=== PATIENT | male | born 1960 | race Caucasian/White ===

== ENCOUNTER 2017-05-16 07:28 | Day surgery (SDC) | payer MEDICARE, OTHER ==
[~2017-05-16 07:28] MED LIST: Lactated Ringers 1,000 ML IV SCH; Sodium Chloride 0.9% 10 ML Syringe FLUSH PRN
[2017-05-16] MEDS ORDERED: Midazolam 1 MG/ML 2 ML SDV IV ONE (08:30)
[2017-05-16] MEDS ORDERED: Propofol 200 MG/20 ML SDV IV ONE (08:30)
--- NOTE | 2017-05-16 09:04 | PCM.OPNOTE ---
- General Post-Op/Procedure Note Date of Surgery/Procedure: 05/16/17 Operative Procedure(s): c scope with bx Findings: descending colon polyp sigmoid diverticulosis Pre Op Diagnosis: screening Post-Op Diagnosis: descending colon polyp. sigmoid diverticulosis Anesthesia Technique: VINITA Primary Surgeon: Jared Hector Anesthesia Provider: Luis Man Pathology: descending colon polyp Complications: None Condition: Good Free Text/Narrative:: see dictation
--- NOTE | 2017-05-16 09:47 | OR ---
DATE OF OPERATION: 05/16/2017 SURGEON: Jared Hector MD PROCEDURE PERFORMED: Colonoscopy with cold forceps biopsy. PREOPERATIVE DIAGNOSIS: Need for screening colonoscope. POSTOPERATIVE DIAGNOSIS: Sigmoid diverticulosis, descending colon polyp. INDICATIONS FOR PROCEDURE: This is a 57-year-old white male who presents for screening colonoscopy. He was offered and accepted same. DESCRIPTION OF OPERATION: After an excellent IV sedation was administered, digital rectal exam was performed. No marked abnormality was noted. Flexible colonoscope was inserted. At the sigmoid, there was a very sharp curve, but we were able to maneuver it. Scope was advanced to the cecum. The prep was excellent. The following findings were noted: Ascending colon, unremarkable. Transverse colon, unremarkable. Descending colon, the distal descending colon small polypoid lesion, biopsied with cold biopsy forceps and sent for permanent. Sigmoid, a few diverticula. Rectum and anus unremarkable. Colon was deflated and the scope was removed. The patient tolerated the procedure well, and was taken to recovery in good condition. /[id number] /MARLEE
== END 2017-05-16 10:29 | disposition home or self-care (01) ==
LOC: FB.SDS 07:28
PROVIDERS: ATTEND Surgery
DX: Z12.11 Encounter for screening for malignant neoplasm of colon (principal); D12.4 Benign neoplasm of descending colon; K57.30 Diverticulosis of large intestine without perforation or abscess without bleeding; K21.9 Gastro-esophageal reflux disease without esophagitis; F32.9 Major depressive disorder, single episode, unspecified; Z79.899 Other long term (current) drug therapy
CPT/HCPCS: 00812; 45380; 88305; J2250; J2704; J7120

== ENCOUNTER 2019-09-27 07:28 | Day surgery (SDC) | payer MEDICARE, OTHER ==
[2019-09-27] MEDS ORDERED: Midazolam 1 MG/ML 2 ML SDV IV ONE (07:29)
[2019-09-27] MEDS ORDERED: Propofol 200 MG/20 ML SDV IV ONE (07:29)
[2019-09-27] MEDS ORDERED: Sodium Chloride 0.9% 10 ML Syringe FLUSH PRN (07:30)
[2019-09-27] MEDS ORDERED: Lactated Ringers 1,000 ML IV SCH (07:30)
--- NOTE | 2019-09-27 09:18 | PCM.OPNOTE ---
- General Post-Op/Procedure Note Date of Surgery/Procedure: 09/27/19 Operative Procedure(s): c scope Findings: sigmoid diverticulosis Pre Op Diagnosis: personal hx of colon polyp (descending colon low grade dysplasia). diveticulosis Post-Op Diagnosis: sigmoid diverticulosis Anesthesia Technique: MAC Primary Surgeon: Jared Hector Anesthesia Provider: Terri Yates Pathology: none Complications: None Condition: Good Free Text/Narrative:: see dictation
--- NOTE | 2019-09-28 11:29 | OR ---
DATE OF OPERATION: 09/27/2019 SURGEON: Jared Hector MD PROCEDURE PERFORMED: Colonoscopy. PREOPERATIVE DIAGNOSES: Personal history of diverticulosis and descending colon polyp. POSTOPERATIVE DIAGNOSIS: Sigmoid diverticulosis. INDICATIONS FOR PROCEDURE: This is a 59-year-old white male who, approximately two years ago, had a biopsy performed with some low-grade dysplasia. He presents now for followup scope. DESCRIPTION OF PROCEDURE: After an excellent IV sedation was administered, digital rectal exam was performed. No marked abnormality was noted. Flexible colonoscope was inserted and advanced to the cecum. Prep was excellent. The following findings were noted. Ascending colon, unremarkable. Transverse colon, unremarkable. Descending colon, unremarkable. Sigmoid, scattered diverticula. Rectum and anus, unremarkable. Colon was deflated. The scope was removed. The patient tolerated the procedure well. RECOMMENDATIONS: Repeat scope in 10 years. /[id number] /MAKAYLAL
== END 2019-09-27 10:12 | disposition home or self-care (01) ==
LOC: FB.SDS 07:28
PROVIDERS: ATTEND Surgery
DX: Z12.11 Encounter for screening for malignant neoplasm of colon (principal); K57.30 Diverticulosis of large intestine without perforation or abscess without bleeding; K21.9 Gastro-esophageal reflux disease without esophagitis; F32.9 Major depressive disorder, single episode, unspecified; Z79.899 Other long term (current) drug therapy; Z86.010 Personal history of colon polyps; Z98.890 Other specified postprocedural states
CPT/HCPCS: 00811; G0105; J2250; J2704; J7120